=== PATIENT | male | born 1975 | race African-American/Black ===

== ENCOUNTER 2017-01-03 21:58 | Emergency (ER) | payer OTHER ==
--- NOTE | 2017-01-03 22:15 | ERNOTE ---
Upper Extremity HPI - Narrative Date of Service: 01/03/17 - General Extremities Pain Location: shoulder: right Time Seen by Provider: 01/03/17 22:12 Source: patient Exam Limitations: no limitations - Immun/Allergies/Home Medications Immunizations: IMMUNIZATION HX Immunizations Up to Date Yes History of Influenza Vaccine Yes Hx Pneumococcal Vaccination No Allergies/Adverse Reactions: Allergies Allergy/AdvReac Type Severity Reaction Status Date / Time No Known Allergies Allergy Unverified 01/03/17 22:16 Home Medications: HOME MEDICATIONS Amlodipine/Atorvastatin [Amlodipine-Atorvast 10-10 mg] 10 mg PO DAILY 01/03/17 [ Last Taken Unknown] Furosemide [Lasix] 40 mg PO DAILY 01/03/17 [Last Taken Unknown] Loratadine [Claritin] 10 mg PO DAILY 01/03/17 [Last Taken Unknown] Naproxen [Naprosyn] 500 mg PO BID PRN 01/03/17 [Last Taken Unknown] Ibuprofen [Motrin] 600 mg PO TID PRN #30 tab 01/04/17 [Last Taken Unknown] - History of Present Illness Narrative: HAS SUBLUXABLE SHOULDER THAT HE SAYS IS DISLOCATED BUT WILL NOT GO BACK IN. USUALLY HE SAYS HE CAN GET IT TO REDUCE. HE HAS NOT HAD SURGERY ON THE SHOULDER IN THE PAST. THE LAST TIME THIS HAPPENED HE WAS SEEN IN [place] . HE SAYS HE HAS HAD ABOUT 3 EPISODES IN THE PAST 12 MONTHS BUT HAS NEVER BEEN SEEN HERE. HE DENIES OTHER MEDICAL PROBLEMS AND IS NOT ON ANY MEDS AND HAS NO KNOWN ALLERGIES. HE SAYS IT HAPPENED WHEN HE PUT HIS RIGHT ARM OUT BEHIND HIM TOO FAR TO REST HIS WEIGHT HE WAS SITTING DOWN. HAPPENED ABOUT 1900. HE IS A LONGTERM INMATE FOR THE PAST 9 YEARS AND DENIES PHX OF DRUG ABUSE. Review of Systems - Review of Systems Constitutional: Present: no symptoms reported, See HPI EYE: Present: no symptoms reported ENT: Present: no symptoms reported Respiratory: Present: no symptoms reported Cardiology: Present: no symptoms reported Gastrointestinal/Abdominal: Present: no symptoms reported Genitourinary: Present: no symptoms reported Musculoskeletal: Present: See HPI, joint pain Skin: Present: no symptoms reported Neurological: Present: no symptoms reported Endocrine: Present: no symptoms reported Hematologic/Lymphatic: Present: no symptoms reported Psych: Present: no symptoms reported All Other Systems: All systems neg except as marked - Patient's Past Medical History Patient History - Medical: No pertinent hx Patient History - Cardiac/Respiratory: Hypertension Patient History - Cancer: No Hx of Cancer Patient History - Surgical Procedures: Other, Orthopedic Patient History - Other: None - Social History Living Situations: other Psych History: No pertinent hx Smoking Status: Never smoker Have you smoked in the past 12 months: No Do you dip or chew tobacco: No Alcohol Use: none Drug Use: none - Immunizations Immunizations Up to Date: Yes Hx Pneumococcal Vaccination: No History of Influenza Vaccine: Yes Physical Exam - Physical Exam General Appearance: Present: wd/wn, alert, moderate distress - 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 HE SAYS HE DID NOT TAKE HIS BP MEDS LIKE HE SHOULD. Eye Exam: Normal inspection: bilateral, PERRL: bilateral, EOMI: bilateral Ears, Nose, Throat: Present: normal ENT inspection Neck: Present: normal inspection Respiratory: Present: no respiratory distress, normal breath sounds, no accessory muscle use, chest nontender, lungs clear Cardiovascular/Chest: Present: regular rate, rhythm, no murmur, normal peripheral pulses Peripheral Pulses: N=norm/S=strong/W=weak/B=bound/A=absent: Radial (R): Normal Back Exam: Present: normal inspection Extremity Exam: Present: normal except -, other - PT WITH DEFORMITY OF RIGHT SHOULDER WITH FINDINGS CONSISTENT WITH ANT. DISLOCATION. GOOD DISTAL STRENGTH AND REFILL AND PULSES AND SENSATION ON THE RIGHT UPPER EXTREMITY Neurological Exam: Present: alert, oriented, normal mood/affect Skin Exam: Present: normal color, warm/dry ED Progress - Vital Signs Patient's Vital Signs:: I have reviewed the patient's vital signs. Vital Signs: Vital Signs 01/03/17 22:05 Temperature 35.5 C L Pulse Rate 86 Respiratory 18 Rate Blood Pressure 220/126 O2 Sat by Pulse 98 Oximetry INITIAL BP IS ELEVATED ( HE HAS PHX OF HTN AND ALSO HAS PAIN WITH MOVEMENT OF THE SHOULDER BUT STATES HE IS NOT ON MEDS) - X-Ray X-Ray #1 X-Ray: shoulder Interpretation: Interp. by me - RIGHT SHOULDER WITH ANTERIOR DISLOCATION WITH NO SIGN OF FX. X-Ray #2 X-Ray: shoulder Interpretation: Interp. by me - RE XRAY = GOOD REDUCTION OF RIGHT SHOULDER. - Progress/Reassessment Progress:: Improved - Transfer of Care Expected Disposition: Discharge Procedures Pre-Proc Neuro Vasc Exam: normal Pre-Made Type: SHOULDER IMMOBILIZER Alignment good: Yes Post-Proc Neuro Vasc Exam: normal Complications: Pt magdi procedure well Comments: PT HAD AWAKE SEDATION WITH 100 MG OF KETAMINE IV AND 100 MG OF PROPOFOL IV WHILE BEING MONITORED WITH MAINTENANCE OF HR, SAO2, CAPNOGRAPHY, AND BLOOD PDRESSURE THOUGH OUT PROCEDURE WHICH INVOLVED CLOSED REDUCTION OF DISLOCATED RIGHT SHOULDER WITH RELATIVE EASE. PT HAD GOOD DISTAL PULSES AFTER REDUCTION AND GRADUALLY AWAKENED WITHOUT ANY PROBLEMS, HAPPY THAT HIS SHOULDER WAS BACK IN PLACE. HE HAS GOOD RIGHT HAND STRENGTH AND SENSATION . Plan - Plan Plan: WILL GET PERMIT FOR CONSCIOUS SEDATION AND I WILL GIVE THE MEDS WHILE HE IS MONITORED AND THEN ATTEMPT THE REDUCTION OF THE RIGHT SHOULDER. I EXPLAINED THIS PROCEDURE TO THE PT. WHO UNDERSTANDS. AFTER THE SUCCESFUL PROCEDURE I TALKED WITH HIM AND THE GUARDS RECOMMENDING THAT HE GET FOLLOWED BY AN ORTHOPEDIC SURGEON TO DISCUSS IF SURGICAL REPAIR IS INDICATED. PT RELATES HE HAS CONSTANT CLICKING OF THE RIGHT SHOULDER WITH ACTIVITY LIKE WASHING HIS FACE OR EVEN BRUSHING HIS TEETH. Departure Clinical Impression: Shoulder dislocation, recurrent Qualifiers: Laterality: right Qualified Code(s): M24.411 - Recurrent dislocation, right shoulder - Departure Disposition: Isp Condition: Fair Instructions: How to Use a Shoulder Immobilizer, Shoulder Dislocation, Easy-to- Read Additional Instructions: KEEP THE SHOULDER IMMOBILIZER ON FOR THE NEXT 10 DAYS. USE ICE TO SORE SHOULDER FOR 30 MINS EVERY 6 HOURS FOR 2 DAYS. TYLENOL OR IBUPROFEN FOR PAIN IF NEEDED. YOU NEED TO SEE AN ORTHOPEDIST FOR THE RECURRENT DISLOCATION TO TALK ABOUT SURGICAL REPAIR WITHOUT IT THIS IS LIKELY TO HAPPEN AGAIN. Prescriptions: Ibuprofen [Motrin] 600 mg PO TID PRN #30 tab PRN Reason: Pain
--- OUTSIDE RECORDS SUMMARY | 2017-01-03 22:26 | XMS REPORT | Continuity of Care Document ---
:1975 Author Organization [facility] ([facility]) Address [address] [place] [address] Phone [phone] Care Team Providers Name Role Phone AbhinavIsrael perdue Primary Care Provider [phone] Source Comments This disclosure is being made pursuant to the Care Everywhere program, applicable federal and state laws, and may not contain all informaitonavailable regarding this patient.[facility] ([facility]) Active Allergies and Adverse Reactions No Known Allergies Current Medications Prescription Sig. Disp. Refills Start Date End Date Status naproxen 500 mg tablet Take 500 mg by mouth Active daily as needed. loratadine 10 mg tablet Take 10 mg by mouth Active daily. amLODIPine 10 mg tablet Take 10 mg by mouth Active daily. furosemide 40 mg tablet Take 40 mg by mouth Active daily. Active Problems Not on file Most Recent Encounters Date Type Specialty Providers Description 11/25/2016 Community Orders Patient Services Israel Sol 11/13/2016 Hospital Encounter Emergency Medicine Akhil Husain, Dx: Pain in joint of DO right shoulder (Primary Dx) Social History Tobacco Use Types Packs/Day Years Used Date Never Smoker Smokeless Tobacco: Never Used Alcohol Use Drinks/Week oz/Week Comments No Last Filed Vital Signs Vital Sign Reading Time Taken Blood Pressure 176/108 11/13/2016 2:10 PM CDT Pulse 60 11/13/2016 2:10 PM CDT Temperature 36 C (96.8 F) 11/13/2016 2:10 PM CDT Respiratory Rate 16 11/13/2016 2:10 PM CDT Height 1.803 m (5' 11") 09/11/2012 4:45 PM [employer] Weight 122.471 kg (270 lb) 09/11/2012 4:45 PM [employer] Body Mass Index 37.67 09/11/2012 4:45 PM [employer] Oxygen Saturation 100% 11/13/2016 2:10 PM CDT Plan of Care Date Type Specialty Providers Description 01/09/2017 Appointment Orthopaedic Elio Waller MD Chief Comp: Patient [address] [place] [address] [phone] (Fax) Health Maintenance Due Date Last Done Comments Hepatitis B Vaccine (1 of 3 - Primary Series) 1975 Tdap Vaccine 1984 Lipid Disorder Screening 1991 MMR Vaccine 1991 Td Vaccine 1991 Influenza Vaccine: Seasonal (Season Ended) 2017 Results from Last 3 Months RIGHT SHOULDER AP& AXILLARY (11/13/2016 7:48 PM) Narrative Procedure: RIGHT SHOULDER AP & AXILLARY Clinical Indication: Right shoulder pain Comparison:None. Findings/impression: No acute fracture or dislocation. No sequela of prior dislocation identified. Visualized lung is clear. Procedure Note Ervin, Incoming Imaging Results - Triny Nov 13, 2016 10:01 PM CDT Procedure: RIGHT SHOULDER AP & AXILLARY Clinical Indication: Right shoulder pain Comparison: None. Findings/impression: No acute fracture or dislocation. No sequela of prior dislocation identified. Visualized lung is clear.
[2017-01-03] MEDS ORDERED: ONDANSETRON HCL/PF 2 MG/ML VIAL IV ONE (23:00)
[2017-01-03] MEDS ORDERED: MORPHINE SULFATE 4 MG/ML SYRG IV ONE (23:00)
[2017-01-03] MEDS ORDERED: NORMAL SALINE 1,000 ML IV ONE (23:00)
[2017-01-03] MEDS ORDERED: MORPHINE SULFATE 4 MG/ML SYRG ONE (23:16)
[2017-01-03] MEDS ORDERED: ONDANSETRON HCL/PF 2 MG/ML VIAL ONE (23:16)
[2017-01-04 00:22] VITALS: BP 221/114
== END 2017-01-04 01:17 | disposition home or self-care (01) ==
LOC: ER 21:58
PROC: 0RSJXZZ Reposition Right Shoulder Joint, External Approach (ICD-10-PCS; principal; 2017-01-03)
PROC: 2W3AX1Z Immobilization of Right Upper Arm using Splint (ICD-10-PCS; 2017-01-03)
DX: M24.411 Recurrent dislocation, right shoulder (principal); I10 Essential (primary) hypertension
CPT/HCPCS: 23650; 73030; 99284; J2405